=== PATIENT | female | born 1940 | race Hispanic/Latino ===

== ENCOUNTER 2017-04-29 11:53 | Emergency (ER) | payer MEDICARE ==
[~2017-04-29] VITALS: Ht 144.8 cm; Wt 68.9 kg
[2017-04-29] MEDS ORDERED: TRAMADOL HCL 50 MG TAB PO ONE (13:15)
--- NOTE | 2017-04-29 13:45 | Diagnostic Imaging Report ---
PROCEDURE:X-RAY LEFT HUMERUS, TWO OR MORE VIEWS COMPARISON:None. INDICATIONS:SHOULDER FRACTURE FINDINGS: See below. CONCLUSION: Mildly displaced fracture of the left humeral neck. Generalized demineralization. Dictated by: Sundar Lowry M.D. on 04/29/2017 at 13:53 Electronically approved by: Sundar Lowry M.D. on 04/29/2017 at 13:53
--- NOTE | 2017-04-29 13:51 | Diagnostic Imaging Report ---
PROCEDURE:X-RAY LEFT SHOULDER, COMPLETE COMPARISON:None. INDICATIONS:RULE OUT FRACTURE SHOULDER FINDINGS: See below. CONCLUSION: Generalized demineralization. Medially displaced fracture of the left humeral neck. Mild inferiorly displaced acromion in respect to clavicle (likely type II seperation). No shoulder dislocation. Dictated by: Sundar Lowry M.D. on 04/29/2017 at 13:59 Electronically approved by: Sundar Lowry M.D. on 04/29/2017 at 13:59
[2017-04-29 15:11] VITALS: BP 160/68
== END 2017-04-29 15:25 | disposition home or self-care (01) ==
LOC: ER 11:53
DX: S42.295A Other nondisplaced fracture of upper end of left humerus, initial encounter for closed fracture (principal); I10 Essential (primary) hypertension; E11.9 Type 2 diabetes mellitus without complications; E03.9 Hypothyroidism, unspecified; W18.39XA Other fall on same level, initial encounter; Y93.E5 Activity, floor mopping and cleaning
CPT/HCPCS: 99284